=== PATIENT | female | born 1985 | race Caucasian/White ===

== ENCOUNTER 2016-11-09 19:38 | Emergency (ER) | payer OTHER ==
[~2016-11-09] VITALS: Ht 157.5 cm; Wt 109.1 kg
[~2016-11-09 19:38] MED LIST: ALBUTEROL0.09 MG/A1 IH; AMOXICILLIN 50500 MG PO; BCP TD; BIRTH CONTROL PILLS; LEVOTHYROXINE PO; LORTAB 5/500 501 TAB PO; MOTRIN 800800 MG/TAB PO; PHENERGAN W/CO120 ML PO; PRENATAL1 TA7 PO; TYLENOL #3 301 UDTAB PO; ZANTAC150 MG PO; ZYRTEC 10MG10 MG PO
[2016-11-09 19:44] VITALS: TEMP 98.3
[2016-11-09 20:25] LABS: BASO # 0.1 (0.0-0.2); BASO % 0.5 % (0.0-2.0); EOS # 0.3 (0.0-0.7); EOS % 2.4 % (0-4.0); GRAN % 66.4 % (42.2-75.2); HEMATOCRIT 42.9 % (37.0-47.0); HEMOGLOBIN 14.5 g/dl (12.5-16.0); LYMPH # 3.4 (1.2-3.4); LYMPH % 24.8 % (20.0-51.0); MEAN CELL VOLUME 88 fl (80.0-100.0); MEAN CORPUSCULAR HEMOGLOBIN 30 pg (27.0-31.0); MEAN CORPUSCULAR HGB CONC 34 g/dl (33.0-37.0); MEAN PLATELET VOLUME 9.7 fl (7.4-10.4); MONO # 0.8 (0.1-0.6); MONO % 5.7 % (1.7-9.3); PLATELET COUNT 298 K/mm3 (130-400); PROTHROMBIN TIME 10.6 SECONDS (9.7-12.8); RED BLOOD COUNT 4.89 M/mm3 (4.10-5.30); REDCELL DISTRIBUTION WIDTH-CV 12.9 % (11.5-14.5); WHITE BLOOD COUNT 13.5 K/mm3 (4.8-10.8)
[2016-11-09 20:28] LABS: PARTIAL THROMBOPLASTIN TIME 33.6 SECONDS (26.0-37.0)
[2016-11-09 20:30] LABS: ADJUSTED CALCIUM 9.1 mg/dL (8.4-10.2); ALANINE AMINOTRANSFERASE 34 U/L (9-52); ALBUMIN 4.4 gm/dL (3.5-5.0); ALKALINE PHOSPHATASE 75 U/L (50-136); ANION GAP 15 mmol/L (7-16); BILIRUBIN,TOTAL 0.7 mg/dL (0.0-1.0); BLOOD UREA NITROGEN 16 mg/dL (7-17); CALCIUM 9.4 mg/dL (8.4-10.2); CARBON DIOXIDE 23 mmol/L (22-30); CHLORIDE 103 mmol/L (98-107); CREATININE, serum 0.85 mg/dL (0.52-1.25); GLUCOSE 129 mg/dL (74-106); POTASSIUM 3.6 mmol/L (3.4-5.0); SODIUM 141 mmol/L (137-145); TOTAL PROTEIN 8.2 gm/dL (6.4-8.2)
[2016-11-09 20:55] LABS: TROPONIN-I < 0.012 ng/mL (0.000-0.034)
[2016-11-09 21:22] VITALS: BP 115/95; PULSE 96
== END 2016-11-09 21:25 | disposition home or self-care (01) ==
LOC: COL.ER 19:38
PROVIDERS: Family Medicine
DX: E86.0 Dehydration (principal); R00.2 Palpitations; R00.0 Tachycardia, unspecified; R07.89 Other chest pain
CPT/HCPCS: J7030

== ENCOUNTER 2020-07-01 09:24 | Outpatient (RCR) | payer OTHER ==
--- NOTE | 2020-06-16 09:55 | NUR ---
PT HERE FOR NST FOR TWIN GESTATION. FHT'S FOUND EASILY ON BOTH BABIES. NO CONTRACTIONS PER PT. FHT'S REACTIVE ON BOTH BABIES. DR CURRY CALLED AT 0940 WITH UPDATE ON REACTIVE NST AND HE STATES PT CAN BE DISCHARGED TO HOME. EARLY LABOR INSTRUCTIONS GIVEN TO PT. PT TO SEE DR DURÁN IN ONE WEEK AND COME BACK IN TWO WEEKS.
[~2020-07-01] VITALS: Ht 157.5 cm; Wt 123.4 kg
--- NOTE | 2020-07-01 09:15 | NUR ---
0915- 35.0, G3L2 arrives on unit for NST. Ambulatory to LDR3. 0925- EFM explained and placed x3. Baby A and B tracing well. VS obtained. Assessment completed. 0945- NST completed. Baby A and B reactive. 0947- Dr. Steward updated. See physician notification. 0955- Discharge instructions provied. Patient verbalizes understanding. Ambulatory off unit.
[~2020-07-01 09:24] MED LIST changes: +CALCIUM CARBON650 M2 PO; +FOLIC ACID 40400 MCG PO; +LEXAPRO 5MG5 MG PO
[2020-07-22] MEDS ORDERED: MOTRIN 800800 MG/TAB PO (08:41)
== END 2020-07-20 | disposition home or self-care (01) ==
LOC: LDRO
DX: O30.003 Twin pregnancy, unspecified number of placenta and unspecified number of amniotic sacs, third trimester (principal); Z3A.32 32 weeks gestation of pregnancy

== ENCOUNTER → 2023-12-06 | Outpatient (CLI) | payer OTHER ==
[2005-04-22 21:42] VITALS: TEMP 97.5
== END ==
LOC: MC.RAD 11:05
DX: Z12.31 Encounter for screening mammogram for malignant neoplasm of breast (principal)